=== PATIENT | female | born 1970 | race Caucasian/White ===

== ENCOUNTER 2017-03-13 11:20 | Inpatient (IN) | payer OTHER ==
[~2017-03-13] VITALS: Ht 160 cm; Wt 71.7 kg
[2017-03-13] MEDS ORDERED: XANAX0.5 MG PO (12:53)
[2017-03-13] MEDS ORDERED: SPIRIVA RESPIMAT4 GM INH (12:54)
[2017-03-13 13:53] LABS: BASO # 0.1 10*3/uL (0.0-0.1); BASO % 0.5 % (0.0-1.0); EOS # 0.2 10*3/uL (0.0-0.4); EOS % 1.7 % (1.0-4.0); HEMOGLOBIN 12.9 g/dl (12.0-16.0); IG # 0.1 10*3/uL (0.0-0.1); LYMPH # 2.4 10*3/uL (1.3-4.4); LYMPH % 19.4 % (27.0-41.0); MEAN CELL VOLUME 93.9 fl (81.0-99.0); MEAN CORPUSCULAR HGB 30.3 pg (27.0-31.0); MEAN CORPUSCULAR HGB CONC 32.3 g/dl (33.0-37.0); MONO # 0.7 10*3/uL (0.1-1.0); MONO % 5.5 % (3.0-9.0); NEUT % 72.5 % (47.0-73.0); PLATELET COUNT AUTOMATED 269 10*3/uL (130-400); RED BLOOD COUNT 4.26 10*6/uL (4.10-5.10); RED CELL DISTRI WIDTH 13.2 % (0-14.5); WHITE BLOOD COUNT 12.4 10*3/uL (4.8-10.8)
[2017-03-13 14:00] VITALS: BP 130/88
[2017-03-13 14:05] LABS: PROTHROMBIN TIME 10.1 SECONDS (9.0-12.4)
[2017-03-13 14:06] LABS: BILIRUBIN NEGATIVE (NEGATIVE); BLOOD NEGATIVE (NEGATIVE); CLARITY CLEAR (CLEAR); COLOR YELLOW (YELLOW); GLUCOSE 1+ (NEGATIVE); KETONE TRACE (NEGATIVE); LEUKO ESTERASE NEGATIVE (NEGATIVE); NITRITE NEGATIVE (NEGATIVE); PROTEIN TRACE (NEGATIVE); UROBILINOGEN 0.2 E.U./dl (0.2-1.0)
[2017-03-13 14:09] LABS: ALKALINE PHOSPHATASE 63 U/L (45-117); BILIRUBIN, TOTAL 0.3 mg/dl (0.2-1.0); BUN 14 mg/dl (7-24); CARBON DIOXIDE 22 mmol/L (21-32); CHLORIDE 113 mmol/L (98-107); EST GLOM FILT AFRICAN AMERICAN > 60 ml/min; GLUCOSE 82 mg/dL (65-99); POTASSIUM 3.9 mmol/L (3.5-5.1); SGOT/AST 14 IU/L (3-35); SGPT/ALT 22 U/L (12-78); SODIUM 145 mmol/L (136-145); TOTAL PROTEIN 6.9 gm/dL (6.4-8.2)
[2017-03-13] MEDS ORDERED: NEXIUM40 MG PO (14:11)
[2017-03-13] MEDS ORDERED: OXYCODONE HCL10 M1 PO (14:12)
[2017-03-13] MEDS ORDERED: NEURONTIN300 MG PO (14:13)
[2017-03-13 14:17] LABS: URINE AMPHETAMINES < 1000 (1000ng/ml); URINE BARBITURATES < 200 (200ng/ml); URINE COCAINE > 300 (300ng/ml)
[2017-03-13 14:23] LABS: URINE REFLEX COMMENT NO (NO)
[2017-03-13 16:00] VITALS: BP 136/80
[2017-03-13 20:00] VITALS: BP 112/68
[2017-03-14] VITALS: BP 106/56
[2017-03-14 04:00] VITALS: BP 107/54
[2017-03-14 08:00] VITALS: BP 105/67
[2017-03-14 12:00] VITALS: BP 94/63
[2017-03-14 16:00] VITALS: BP 95/52
[2017-03-15] VITALS: BP 102/64
[2017-03-15 08:00] VITALS: BP 90/54
[2017-03-15 16:00] VITALS: BP 90/63
[2017-03-15 20:00] VITALS: BP 103/60
[2017-03-16] VITALS: BP 110/66
[2017-03-16 08:00] VITALS: BP 110/56
[2017-03-16 16:00] VITALS: BP 98/80
[2017-03-16 20:23] VITALS: BP 103/60
[2017-03-17] VITALS: BP 104/61; BP 125/61
[2017-03-17 08:00] VITALS: BP 104/59
[2017-03-17] MEDS ORDERED: ZOFRAN 4 MG ED2 TAB PO (08:57)
[2017-03-17] MEDS ORDERED: ATARAX,VISTARIL50 MG PO (08:57)
== END 2017-03-17 12:17 | disposition home or self-care (01) | DRG 897 ==
LOC: 4E 11:20
PROVIDERS: Internal Medicine; Obstetrics & Gynecology
DX: F11.23 Opioid dependence with withdrawal (principal); E87.8 Other disorders of electrolyte and fluid balance, not elsewhere classified; E44.0 Moderate protein-calorie malnutrition; J43.9 Emphysema, unspecified; F14.90 Cocaine use, unspecified, uncomplicated; G25.81 Restless legs syndrome; F41.9 Anxiety disorder, unspecified; D72.825 Bandemia; R03.0 Elevated blood-pressure reading, without diagnosis of hypertension; M54.30 Sciatica, unspecified side; B18.2 Chronic viral hepatitis C; G89.29 Other chronic pain; D64.9 Anemia, unspecified; Z71.6 Tobacco abuse counseling; Z98.891 History of uterine scar from previous surgery; F17.210 Nicotine dependence, cigarettes, uncomplicated; Z82.49 Family history of ischemic heart disease and other diseases of the circulatory system; Z80.1 Family history of malignant neoplasm of trachea, bronchus and lung; Z79.899 Other long term (current) drug therapy; Z91.041 Radiographic dye allergy status; Z68.27 Body mass index [BMI] 27.0-27.9, adult

== ENCOUNTER 2017-05-27 14:05 | Inpatient (IN) | payer OTHER ==
[~2017-05-27] VITALS: Ht 160 cm; Wt 68.5 kg
[~2017-05-27 14:05] MED LIST: ATARAX,VISTARIL50 MG PO; NEURONTIN300 MG PO; NEXIUM40 MG PO; OXYCODONE HCL10 M1 PO; SPIRIVA RESPIMAT4 GM INH; XANAX0.5 MG PO; ZOFRAN 4 MG ED2 TAB PO
--- NOTE | 2017-05-27 15:45 | NUR ---
46 year old FEMALE admitted to room # 402-2 for stabilization. Reports an addiction to IV HEROIN last used YESTERDAY. JAMES MASSEY RN
[2017-05-27 15:53] VITALS: BP 146/68
[2017-05-27] MEDS ORDERED: XANAX1 MG PO (15:58)
[2017-05-27 16:42] LABS: BILIRUBIN NEGATIVE (NEGATIVE); BLOOD NEGATIVE (NEGATIVE); CLARITY CLEAR (CLEAR); COLOR YELLOW (YELLOW); GLUCOSE TRACE (NEGATIVE); KETONE TRACE (NEGATIVE); LEUKO ESTERASE NEGATIVE (NEGATIVE); NITRITE NEGATIVE (NEGATIVE); UROBILINOGEN 0.2 E.U./dl (0.2-1.0)
[2017-05-27 16:51] LABS: URINE AMPHETAMINES < 1000 (1000ng/ml); URINE BARBITURATES < 200 (200ng/ml); URINE BENZODIAZEPINES < 200 (200ng/ml); URINE CANNABINOIDS (THC) < 50 (50ng/ml); URINE COCAINE > 300 (300ng/ml); URINE METHADONE < 300 (300ng/ml); URINE OPIATES > 300 (300ng/ml)
[2017-05-27 16:52] LABS: URINE PHENCYCLIDINE < 25 (25ng/ml)
[2017-05-27 16:52] LABS: BASO % 0.3 % (0.0-1.0); EOS # 0.2 10*3/uL (0.0-0.4); EOS % 1.8 % (1.0-4.0); HEMATOCRIT 36.6 % (37.0-47.0); HEMOGLOBIN 11.9 g/dl (12.0-16.0); LYMPH # 2.3 10*3/uL (1.3-4.4); LYMPH % 23.9 % (27.0-41.0); MEAN CELL VOLUME 93.1 fl (81.0-99.0); MEAN CORPUSCULAR HGB 30.3 pg (27.0-31.0); MEAN CORPUSCULAR HGB CONC 32.5 g/dl (33.0-37.0); MEAN PLATELET VOLUME 10.9 fl (9.6-12.3); MONO # 0.7 10*3/uL (0.1-1.0); NEUT # 6.4 10*3/uL (2.3-7.9); NEUT % 66.6 % (47.0-73.0); PLATELET COUNT AUTOMATED 308 10*3/uL (130-400); RED BLOOD COUNT 3.93 10*6/uL (4.10-5.10); RED CELL DISTRI WIDTH 13.2 % (0-14.5); WHITE BLOOD COUNT 9.6 10*3/uL (4.8-10.8)
[2017-05-27 16:54] LABS: BACTERIA 2+
[2017-05-27] MEDS ORDERED: WELLBUTRIN SR150 MG PO (17:01)
[2017-05-27] MEDS ORDERED: OXYCODONE HCL10 M1 PO (17:01)
[2017-05-27] MEDS ORDERED: OXYCODONE HCL20 M1 PO (17:02)
--- NOTE | 2017-05-27 17:03 | NUR ---
VERIFIED HOME MEDS WITH PHARMACY
--- NOTE | 2017-05-27 17:05 | NUR ---
NOTIFIED DR Samuel LEA THAT MEDS WERE VERIFIED.
[2017-05-27 17:06] LABS: ALKALINE PHOSPHATASE 65 U/L (45-117); BUN 13 mg/dl (7-24); CHLORIDE 110 mmol/L (98-107); CREATININE 0.69 mg/dL (0.55-1.02); ETHYL ALCOHOL < 3.0 mg/dl (<3); POTASSIUM 3.9 mmol/L (3.5-5.1); SGOT/AST 15 IU/L (3-35); SGPT/ALT 22 U/L (12-78); SODIUM 141 mmol/L (136-145); TOTAL PROTEIN 7.1 gm/dL (6.4-8.2)
--- NOTE | 2017-05-27 19:10 | NUR ---
Patient reports the following symptoms of withdrawal: body aches, nausea and stomach cramping. Patient given scheduled/PRN medication to control withdrawal symptoms. Close observation will be maintained.
--- NOTE | 2017-05-27 19:17 | NUR ---
prn zofran given for nausea per pt request.
[2017-05-27 20:00] VITALS: BP 105/57
--- NOTE | 2017-05-27 20:20 | NUR ---
PATIENT RESTING IN BED WATCHING TV. STATES BODY FEELS RESTLESS AND WOULD LIKE A NICOTINE PATCH. REMINDED TO NOT LEAVE THE FLOOR. BED IN LOWEST POSITION, CALL LIGHT IN REACH
--- NOTE | 2017-05-27 21:26 | NUR ---
PATIENT MEDICATED WITH REQUIP FOR C/O RESTLESS LEGS AND A NICOTINE PATCH FOR SMOKING URGES
--- NOTE | 2017-05-27 23:00 | NUR ---
PATIENT RESTING WITH EYES CLOSED. MEDICATION SEEMS EFFECTIVE.
[2017-05-28] VITALS: BP 97/49
--- NOTE | 2017-05-28 02:11 | NUR ---
PATIENT RESTING WITH EYES CLOSED. RESPS EASY AND REGULAR. BED IN LOWEST POSITION, CALL LIGHT IN REACH
--- NOTE | 2017-05-28 04:13 | NUR ---
PATIENT RESTING IN BED WIHT EYES CLOSED. NO S/S OF DISTRESS. BED IN LOWEST POSITION, CALL LIGHT IN REACH
[2017-05-28 08:00] VITALS: BP 112/62
--- NOTE | 2017-05-28 09:00 | NUR ---
PT SAT UP IN BED TO TAKE PO MEDS WITHOUT DIFFICULTY. DENIES ANY NEEDS. WILL CONTINUE TO MONITOR.
--- NOTE | 2017-05-28 10:00 | NUR ---
PT ASLEEP IN BED. RESPIRATIONS EASY AND REGULAR. NO S/S OF DISTRESS. WILL CONTINUE TO MONITOR.
[2017-05-28 16:00] VITALS: BP 117/68
--- NOTE | 2017-05-28 19:45 | NUR ---
PATIENT RESTING IN BED WITH NO NEEDS MADE. ARROUSES EASILY. BED IN LOWEST POSITION, CALL LIGHT IN REACH
[2017-05-29] VITALS: BP 106/60
--- NOTE | 2017-05-29 02:15 | NUR ---
PAITENT RESTING IN BED WITH EYES CLOSED. RESPS EASY AND REGULAR. BED IN LOWEST POSITION, CALL LIGHT IN REACH
[2017-05-29 07:45] VITALS: BP 92/52
[2017-05-29 08:00] VITALS: BP 82/54
--- NOTE | 2017-05-29 08:11 | NUR ---
MEDICATED WITH PRN PO ROBAXIN AND MOTRIN FOR MUSCLE CRAMPS AND ACHES, REQUIP FOR RESTLESS LEGS, VISTARIL FOR ANXIETY, AND NICOTINE PATCH FOR SMOKING CRAVINGS. ALSO ADMINISTERED SL SUBUTEX SCHEDULED FOR WITHDRAWAL SYMPTOMS.
--- NOTE | 2017-05-29 10:00 | NUR ---
Patient resting. Responding to scheduled medications with fewer complaints of pain and anxiety.
--- NOTE | 2017-05-29 14:07 | NUR ---
D/C PLANNING: PATIENT WANTS INPATIENT TREATMENT. PATIENT WAS GIVEN A FEW REFERRAL OPTIONS. MINING SUPPORT WORKER SENT OUT PATIENT'S ASSESSMENT TO [facility]. [facility] MAY HAVE A POSSIBLE FEMALE BED. MINING SUPPORT WORKER WITH FOLLOW UP WITH [facility] BEFORE PATIENT DISCHARGE. TEJA ABAD B.A. [employer] SUPPORT WORKER
--- NOTE | 2017-05-29 14:09 | NUR ---
MEDICATED WITH PRN PO ROBAXIN FOR MUSCLE CRAMPS, TYLENOL FOR BODY ACHES AND VISTARIL FOR ANXIETY.
--- NOTE | 2017-05-29 15:51 | NUR ---
MEDICATED WITH PRN PO MOTRIN FOR GENERALIZED BODY ACHES
[2017-05-29 16:00] VITALS: BP 92/53
--- NOTE | 2017-05-29 16:41 | NUR ---
DISCHARGE PLAN: PATIENT WILL BE GOING TO [facility] AFTER DISCHARGED. [facility] IS EXPECTING HER AT 1:00PM. PATIENT IS GOING TO DRIVE HERSELF TO THE FACILITY. PATIENT AGREES AND UNDERSTANDS HER AFTERCARE PLAN. TEJA ABAD B.A. [employer]
--- NOTE | 2017-05-29 16:57 | NUR ---
Patient resting. Responding to scheduled medications with fewer complaints of muscle aches/cramps.
--- NOTE | 2017-05-29 20:00 | NUR ---
ASSUMED CARE OF PATIENT. ASSESSMENT COMPLETE. RESTING IN BED. PRN MEDICATIONS REVIEWED. MADE AWARE OF POLICY TO NOT LEAVE THE FLOOR. CALL LIGHT IN REACH. WILL CONTINUE TO MONITOR.
--- NOTE | 2017-05-29 20:15 | NUR ---
MEDICATED WITH PRN REQUIP FOR C/O RESTLESS LEGS. WILL MONITOR FOR EFFECTIVENESS
--- NOTE | 2017-05-29 21:30 | NUR ---
MEDICATED WITH PRN TYLENOL, VISTARIL, ROBAXIN, AND TRAZADONE FOR C/O BACK PAIN, ANXIETY, MUSCLE ACHES, AND HELP TO SLEEP. WILL MONITOR FOR EFFECTIVENESS
[2017-05-30] VITALS: BP 94/55
--- NOTE | 2017-05-30 | NUR ---
AWAKENED FOR ASSESMENT. STATES EARLEIR MEDICATIONS "HELPING"
--- NOTE | 2017-05-30 02:00 | NUR ---
SLEEPING. RESP EASY AND NONLABORED ON ROOM AIR. NO DISTRESS NOTED. CALL LIGHT IN REACH. WILL CONTINUE TO MONITOR.
--- NOTE | 2017-05-30 06:03 | NUR ---
MEDICATED WITH PRN VISTARIL, TYLENOL, AND ROBAXIN FOR C/O ANXIETY, BACK PAIN, AND MUSCLE ACHES
[2017-05-30 06:50] LABS: BASO % 0.5 % (0.0-1.0); EOS # 0.5 10*3/uL (0.0-0.4); EOS % 6.7 % (1.0-4.0); HEMATOCRIT 35.9 % (37.0-47.0); HEMOGLOBIN 11.5 g/dl (12.0-16.0); LYMPH # 2.8 10*3/uL (1.3-4.4); LYMPH % 38.6 % (27.0-41.0); MEAN CORPUSCULAR HGB 30.4 pg (27.0-31.0); MONO # 0.7 10*3/uL (0.1-1.0); MONO % 9.3 % (3.0-9.0); NEUT # 3.3 10*3/uL (2.3-7.9); NEUT % 44.5 % (47.0-73.0); PLATELET COUNT AUTOMATED 270 10*3/uL (130-400); RED BLOOD COUNT 3.78 10*6/uL (4.10-5.10); RED CELL DISTRI WIDTH 13.5 % (0-14.5); WHITE BLOOD COUNT 7.3 10*3/uL (4.8-10.8)
[2017-05-30 07:20] LABS: CREATININE 0.73 mg/dL (0.55-1.02)
[2017-05-30 08:00] VITALS: BP 98/57
--- NOTE | 2017-05-30 11:30 | NUR ---
PATIENT REFUSSING TO LEAVE WANTED TO SEE NURSE CALLED LOYD AND DISCUSSED THE PATIENTS REFUSSAL TO LEAVE. SHE STED THAT PATIENT WAS IN AGREEANCE TO BEING DISCHARGED AND TO GO TO [facility] UPON DISCHARGE. WHEN NURSE WENT BACK TO EXPALIN TO PATIENT THAT SHE HAD BEEN DISCHARGED AND THAT SHE WILL NOT BE GETTING ANY MEDICATION AND THE DOCOTR IS NOT COMING BACK SHE HAS ALREADY SEEN HER THE PATIENT AGREED TO LEAVE
--- NOTE | 2017-05-30 12:08 | NUR ---
PATIENT LEFT FLOOR
== END 2017-05-30 12:08 | disposition home or self-care (01) | DRG 897 ==
LOC: 4E 14:05
PROVIDERS: Internal Medicine; ADMIT Internal Medicine
DX: F11.23 Opioid dependence with withdrawal (principal); E87.8 Other disorders of electrolyte and fluid balance, not elsewhere classified; E44.0 Moderate protein-calorie malnutrition; J43.9 Emphysema, unspecified; M54.30 Sciatica, unspecified side; D72.810 Lymphocytopenia; F14.10 Cocaine abuse, uncomplicated; G25.81 Restless legs syndrome; D64.9 Anemia, unspecified; F41.9 Anxiety disorder, unspecified; G89.29 Other chronic pain; B18.2 Chronic viral hepatitis C; M25.519 Pain in unspecified shoulder; F10.21 Alcohol dependence, in remission; Z85.89 Personal history of malignant neoplasm of other organs and systems; Z72.0 Tobacco use; Z71.6 Tobacco abuse counseling; Z80.1 Family history of malignant neoplasm of trachea, bronchus and lung; Z82.49 Family history of ischemic heart disease and other diseases of the circulatory system; Z84.89 Family history of other specified conditions; Z91.041 Radiographic dye allergy status; Z79.899 Other long term (current) drug therapy; Z68.26 Body mass index [BMI] 26.0-26.9, adult

== ENCOUNTER 2018-01-10 11:45 | Inpatient (IN) | payer OTHER ==
[~2018-01-10] VITALS: Ht 157.5 cm; Wt 65.1 kg
[~2018-01-10 11:45] MED LIST changes: +OXYCODONE HCL20 M1 PO; +WELLBUTRIN SR150 MG PO; +XANAX1 MG PO
[2018-01-10 13:02] VITALS: BP 98/53
[2018-01-10 14:23] LABS: BASO # 0.1 10*3/uL (0.0-0.1); BASO % 0.6 % (0.0-1.0); EOS # 0.1 10*3/uL (0.0-0.4); EOS % 1.1 % (1.0-4.0); HEMATOCRIT 33.7 % (37.0-47.0); HEMOGLOBIN 10.7 g/dl (12.0-16.0); LYMPH % 22.6 % (27.0-41.0); MEAN CELL VOLUME 91.3 fl (81.0-99.0); MEAN CORPUSCULAR HGB CONC 31.8 g/dl (33.0-37.0); MONO # 0.6 10*3/uL (0.1-1.0); MONO % 6.4 % (3.0-9.0); NEUT # 6.2 10*3/uL (2.3-7.9); NEUT % 68.5 % (47.0-73.0); PLATELET COUNT AUTOMATED 550 10*3/uL (130-400); RED BLOOD COUNT 3.69 10*6/uL (4.10-5.10); RED CELL DISTRI WIDTH 13.6 % (0-14.5)
[2018-01-10 14:32] LABS: BILIRUBIN NEGATIVE (NEGATIVE); BLOOD NEGATIVE (NEGATIVE); CLARITY CLEAR (CLEAR); COLOR YELLOW (YELLOW); GLUCOSE NEGATIVE (NEGATIVE); KETONE NEGATIVE (NEGATIVE); LEUKO ESTERASE NEGATIVE (NEGATIVE); NITRITE NEGATIVE (NEGATIVE); SPECIFIC GRAVITY >= 1.030 (1.005-1.030)
[2018-01-10 14:39] LABS: ALBUMIN 2.6 gm/dl (3.1-4.5); ALKALINE PHOSPHATASE 66 U/L (45-117); BUN 11 mg/dl (7-24); CHLORIDE 106 mmol/L (98-107); POTASSIUM 4.1 mmol/L (3.5-5.1); SGOT/AST 16 IU/L (3-35); SGPT/ALT 22 U/L (12-78); SODIUM 136 mmol/L (136-145); TOTAL PROTEIN 7.4 gm/dL (6.4-8.2)
[2018-01-10 14:40] LABS: URINE AMPHETAMINES < 1000 (1000ng/ml); URINE BARBITURATES < 200 (200ng/ml); URINE BENZODIAZEPINES > 200 (200ng/ml); URINE CANNABINOIDS (THC) > 50 (50ng/ml); URINE COCAINE > 300 (300ng/ml); URINE METHADONE < 300 (300ng/ml); URINE OPIATES > 300 (300ng/ml); URINE PHENCYCLIDINE < 25 (25ng/ml)
[2018-01-10 14:46] LABS: ETHYL ALCOHOL < 3.0 mg/dl (<3)
[2018-01-10 14:46] LABS: BACTERIA 1+
[2018-01-10] MEDS ORDERED: OXYCODONE HCL20 M1 PO (15:24)
[2018-01-10 16:00] VITALS: BP 90/52
[2018-01-10] MEDS ORDERED: ROXICODONE30 MG PO (16:28)
[2018-01-10] MEDS ORDERED: PERCOCET 7.5-31 EACH PO (16:29)
[2018-01-10 20:36] VITALS: BP 99/46
[2018-01-11] VITALS: BP 121/71
[2018-01-11 08:00] VITALS: BP 95/44
[2018-01-11 12:00] VITALS: BP 104/64
[2018-01-11 20:00] VITALS: BP 89/55
[2018-01-11 21:15] VITALS: BP 102/60
[2018-01-12] VITALS: BP 94/62
[2018-01-12 08:00] VITALS: BP 82/54
[2018-01-12 16:00] VITALS: BP 80/44
[2018-01-12 20:00] VITALS: BP 96/58
[2018-01-13] VITALS: BP 96/58
[2018-01-13 06:41] LABS: BASO # 0.1 10*3/uL (0.0-0.1); BASO % 0.8 % (0.0-1.0); EOS # 0.4 10*3/uL (0.0-0.4); HEMATOCRIT 36.2 % (37.0-47.0); HEMOGLOBIN 11.2 g/dl (12.0-16.0); LYMPH # 2.5 10*3/uL (1.3-4.4); LYMPH % 28.2 % (27.0-41.0); MEAN CELL VOLUME 93.3 fl (81.0-99.0); MEAN CORPUSCULAR HGB 28.9 pg (27.0-31.0); MEAN CORPUSCULAR HGB CONC 30.9 g/dl (33.0-37.0); MEAN PLATELET VOLUME 10.1 fl (9.6-12.3); MONO # 0.7 10*3/uL (0.1-1.0); MONO % 7.9 % (3.0-9.0); NEUT % 58.2 % (47.0-73.0); PLATELET COUNT AUTOMATED 506 10*3/uL (130-400); RED BLOOD COUNT 3.88 10*6/uL (4.10-5.10); RED CELL DISTRI WIDTH 13.8 % (0-14.5); WHITE BLOOD COUNT 8.7 10*3/uL (4.8-10.8)
[2018-01-13 08:00] VITALS: BP 90/48
[2018-01-13] MEDS ORDERED: ATARAX,VISTARIL50 MG PO (11:29)
[2018-01-13] MEDS ORDERED: KETOROLAC10 MG PO (11:29)
== END 2018-01-13 13:09 | disposition home or self-care (01) | DRG 896 ==
LOC: 4E 11:45
PROVIDERS: Internal Medicine
DX: F11.23 Opioid dependence with withdrawal (principal); E43 Unspecified severe protein-calorie malnutrition; L02.419 Cutaneous abscess of limb, unspecified; B19.20 Unspecified viral hepatitis C without hepatic coma; D64.9 Anemia, unspecified; D47.3 Essential (hemorrhagic) thrombocythemia; F14.10 Cocaine abuse, uncomplicated; F41.9 Anxiety disorder, unspecified; G25.81 Restless legs syndrome; G89.29 Other chronic pain; J44.9 Chronic obstructive pulmonary disease, unspecified; F19.10 Other psychoactive substance abuse, uncomplicated; F17.210 Nicotine dependence, cigarettes, uncomplicated; F12.10 Cannabis abuse, uncomplicated; M54.31 Sciatica, right side; X58.XXXD Exposure to other specified factors, subsequent encounter; S02.2XXD Fracture of nasal bones, subsequent encounter for fracture with routine healing; Z83.3 Family history of diabetes mellitus; Z71.6 Tobacco abuse counseling; Z80.1 Family history of malignant neoplasm of trachea, bronchus and lung; S22.41XD Multiple fractures of ribs, right side, subsequent encounter for fracture with routine healing; Z82.49 Family history of ischemic heart disease and other diseases of the circulatory system; Z84.89 Family history of other specified conditions; Z91.041 Radiographic dye allergy status; Z79.01 Long term (current) use of anticoagulants; Z79.899 Other long term (current) drug therapy; Z68.26 Body mass index [BMI] 26.0-26.9, adult